=== PATIENT | male | born 1975 | race Caucasian/White ===

== ENCOUNTER 2018-01-23 19:48 | Emergency (ER) | payer OTHER, SELFPAY ==
--- NOTE | 2018-01-23 20:11 | HMH.EDUTC ---
[facility] [place]ression: Influenza B Disposition: Home, Self-Care Condition on Discharge: Good Instructions: DI for Influenza -- Adult Additional Instructions: Rest, fluids, Tylenol/Motrin PRN Referrals: David Acevedo MD [Primary Care Provider] - Time of Disposition: 20:19 Medical Decision Making - Medical Records Medical records reviewed: Yes: I reviewed the patient's medical records. Vital Signs: 01/23/18 20:18 Temperature 97.5 F L Temperature Source Oral Pulse Rate [Left Radial] 95 H Respiratory Rate 20 Blood Pressure [Right Arm] 123/79 Blood Pressure Mean [Right Arm] 93 02 Sat by Pulse Oximetry 98 Oxygen Delivery Method Room Air - Lab Data Lab results reviewed: Yes: I reviewed the patient's lab results. - Ilan Inquiry Pt receiving controlled substance: No [facility] [place] - General Stated complaint: Fever Time Seen by Provider: 01/23/18 20:05 - History of Present Illness Provider Complaint: Cough, congestion, fever X 4 days. - Related Data Allergies Allergy/AdvReac Type Severity Reaction Status Date / Time morphine [MORPHINE] Allergy Mild Unverified 11/19/17 14:25 Penicillins [PENICILLINS] Allergy Mild Unverified 11/19/17 14:25 [facility] History I have reviewed the patient's past medical history: Yes - Social History Alcohol Intake: current ROS Obtained: Yes All systems reviewed & no additional complaints - Constitutional Constitutional: Reports body ache, Reports chills, Reports fever(s) - ENT Ears, Nose, Mouth, and Throat: Reports nasal congestion, Reports sinus pressure - Respiratory Respiratory: Yes cough Physical Exam - General General appearance: alert, in no apparent distress - Head Head exam: atraumatic, normocephalic, normal inspection - Eye Eye exam: Present: normal appearance, PERRL, EOMI - ENT ENT exam: Present: normal exam, normal oropharynx, mucous membranes moist, TM's normal bilaterally, normal external ear exam - Neck Neck exam: Present: normal inspection, full ROM, trachea midline. Absent: meningismus, lymphadenopathy - Chest Chest inspection: Present: normal inspection, symmetric chest wall rise. Absent: tenderness - Respiratory Respiratory exam: Present: normal lung sounds bilaterally. Absent: respiratory distress - Cardiovascular Cardiovascular exam: Present: regular rate, normal rhythm. Absent: JVD - Abdominal Exam Abdominal exam: Present: soft, normal bowel sounds. Absent: distention, tenderness, guarding - Extremities Exam Extremities exam: Present: normal inspection, full ROM, normal capillary refill. Absent: calf tenderness - Back Exam Back exam: Present: normal inspection. Absent: tenderness - Neurological Exam Neurological exam: Present: alert, oriented X3 - Psychiatric Psychiatric exam: Present: normal affect, normal mood - Skin Skin exam: Present: warm, dry, intact, normal color - Lymphatic Lymphatic Findings: no adenopathy
[2018-01-23 20:18] VITALS: BP 123/79; PULSE 95; RESP 20; TEMP 36.4; O2SAT 98; BMI 28.8
--- NOTE | 2018-01-23 20:18 | ED_ITS ---
[facility] [place] Clinical Impression: Influenza B Disposition: Home, Self-Care Condition on Discharge: Good Instructions: DI for Influenza -- Adult Additional Instructions: Rest, fluids, Tylenol/Motrin PRN Referrals: David Acevedo MD [Primary Care Provider] - Time of Disposition: 20:19 Medical Decision Making - Medical Records Medical records reviewed: Yes: I reviewed the patient's medical records. Vital Signs: 01/23/18 20:18 Temperature 97.5 F L Temperature Source Oral Pulse Rate [Left Radial] 95 H Respiratory Rate 20 Blood Pressure [Right Arm] 123/79 Blood Pressure Mean [Right Arm] 93 02 Sat by Pulse Oximetry 98 Oxygen Delivery Method Room Air - Lab Data Lab results reviewed: Yes: I reviewed the patient's lab results. - Ilan Inquiry Pt receiving controlled substance: No [facility] [place] - General Stated complaint: Fever Time Seen by Provider: 01/23/18 20:05 - History of Present Illness Provider Complaint: Cough, congestion, fever X 4 days. - Related Data Allergies Allergy/AdvReac Type Severity Reaction Status Date / Time morphine [MORPHINE] Allergy Mild Unverified 11/19/17 14:25 Penicillins [PENICILLINS] Allergy Mild Unverified 11/19/17 14:25 [facility] History I have reviewed the patient's past medical history: Yes - Social History Alcohol Intake: current ROS Obtained: Yes All systems reviewed & no additional complaints - Constitutional Constitutional: Reports body ache, Reports chills, Reports fever(s) - ENT Ears, Nose, Mouth, and Throat: Reports nasal congestion, Reports sinus pressure - Respiratory Respiratory: Yes cough Physical Exam - General General appearance: alert, in no apparent distress - Head Head exam: atraumatic, normocephalic, normal inspection - Eye Eye exam: Present: normal appearance, PERRL, EOMI - ENT ENT exam: Present: normal exam, normal oropharynx, mucous membranes moist, TM's normal bilaterally, normal external ear exam - Neck Neck exam: Present: normal inspection, full ROM, trachea midline. Absent: meningismus, lymphadenopathy - Chest Chest inspection: Present: normal inspection, symmetric chest wall rise. Absent : tenderness - Respiratory Respiratory exam: Present: normal lung sounds bilaterally. Absent: respiratory distress - Cardiovascular Cardiovascular exam: Present: regular rate, normal rhythm. Absent: JVD - Abdominal Exam Abdominal exam: Present: soft, normal bowel sounds. Absent: distention, tenderness, guarding - Extremities Exam Extremities exam: Present: normal inspection, full ROM, normal capillary refill. Absent: calf tenderness - Back Exam Back exam: Present: normal inspection. Absent: tenderness - Neurological Exam Neurological exam: Present: alert, oriented X3 - Psychiatric Psychiatric exam: Present: normal affect, normal mood - Skin Skin exam: Present: warm, dry, intact, normal color - Lymphatic Lymphatic Findings: no adenopathy
[2018-01-23 20:22] LABS: UTC Influenza A Antigen Negative (Negative); UTC Influenza B Antigen Positive (Negative)
[2018-01-23 20:30] VITALS: BP 120/82; PULSE 96; RESP 20; TEMP 36.4; O2SAT 99
== END 2018-01-23 20:29 | disposition home or self-care (01) ==
PROVIDERS: Emergency Provider Physician Assistant; Family Provider Family Medicine; PCP Family Medicine
DX: J11.1 Influenza due to unidentified influenza virus with other respiratory manifestations (principal); Z88.0 Allergy status to penicillin; Z88.6 Allergy status to analgesic agent
CPT/HCPCS: 87804; 99202

== ENCOUNTER → 2019-03-02 12:54 | Outpatient (CLI) | payer OTHER, SELFPAY ==
--- NOTE | 2019-03-02 12:56 | MR_ITS ---
MR lumbar spine wo con, MR 3-d myelogram/MRCP Ordering Physician: Abel Cannon MD Patient Age: 43 years: Male HISTORY: ITS.REASON: back pain Low back pain with bilateral hip pain. Numbness and tingling bilateral legs to knees symptoms for years but it got worse past 1.5 years. No history of back surgery. TECHNIQUE: Sagittal STIR, T1, T2, axial T1 and T2. On 1.5T Siemens wide bore MRI. 3-D MR myelogram image set obtained & performed on MRI workstation. Additional sagittal thin section T2 weighted dataset obtained from this latter acquisition as well (---76 CPT) COMPARISON :CT chest from 2017 which includes the upper lumbar spine. FINDINGS The lumbar vertebral bodies are intact. No compression fracture or lesion. Slightly modest volume underlying osseous spinal canal. L5/S1.: Mild disc bulge most evident just right of midline. Question tiny early minor disc protrusion here to the right of midline as well on sagittal image 6 which appears to just abut right S1 nerve roots sleeve. Mild facet arthropathy also noted .. L4/5. Mild disc space narrowing with slight diffuse loss of disc hydration. Diffuse disc bulge with additional Mild central disc bulge with just abuts and mildly effaces the the anterior aspect of thecal sac at midline. [id number] facet hypertrophy/arthropathy, along with ligamentum flavum most evident to the left. Overall mild foraminal narrowing L3/4. Disc well hydrated well maintained and intact. Trace facet arthropathy. L2/3, L1/2, T12/L1 disc well hydrated and intact and unremarkable. Conus ends appropriately at L1. Neural foramina patent these levels. 3-D myelogram image set.: Visualized nerve roots sleeve appear fairly symmetrical at all visualized levels. No prominent epidural indentation. Only scant bulge to the right at L5/S1 questionably evident. IMPRESSION: No prominent disc herniation. No significant appearing spinal stenosis. Minimal degenerative disc findings as below: ..L4/5. degenerative disc.. Mild Diffuse disc bulge with additional mild central bulge which mildly Mildly effaces thecal sac at midline. Mild/moderate posterior element hypertrophy also noted L5/S1. Asymmetric disc bulge to the right. With perhaps small subtle disc protrusion right paracentral as well..-These Features slightly abut right S1 nerve root.
--- NOTE | 2019-03-02 12:56 | MR_ITS ---
MR cervical spine wo con Ordering Physician: Abel Cannon MD Patient Age: 43 years: Male HISTORY: ITS.REASON: neck pain Neck pain and bilateral shoulder pain headaches symptoms for years but worse past 1.5 years. 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 On 1.5T Siemens wide bore MRI. 3-D MR myelogram image set obtained & performed on MRI workstation. Additional sagittal thin section T2 weighted dataset obtained from this latter acquisition as well (---76 CPT) COMPARISON :None relevant FINDINGS Nonspecific straightening cervical spine most likely positional. Cervical cranial junction appears satisfactory although modest. The spinal canal measures merely 12.5 mm AP at the level of C1. . I would note Diffuse Modest volume underlying osseous spinal canal as well Cervical cord normal caliber and signal. The cervical vertebral bodies are intact with no compression fracture or lesions. Overall the intervertebral disc well hydrated & well-maintained. C2/3, C3/4, C4/5 C5-C6 disc appear intact. Only some scant central disc prominence of midline at C3/4. C4/5 noted at these levels. C6/7.. Small broad-based leftward disc protrusion-- which does mildly efface the thecal sac to the left of midline but does not impinge upon the cervical cord. This disc protrusion extends 2-2.5 mm posteriorly to slightly indenting the thecal sac to the left.. . also note there is some minimal uncovertebral joint hypertrophy bilaterally at this C6/7 level & along with minimal disc prominence yields mild recess and foraminal encroachment bilaterally, left more so than right. C7/T1 disc intact T1-T2 and T2/T3 disc and foramen unremarkable . Facets appear satisfactory with only question some minor facet hypertrophy at C7/T1 to the right 3-D MR myelogram image set shows a slight diffuse indentation upon the anterior thecal sac at C6/7,, slightly more evident to the left-but there is slightly less filling of the exiting nerve roots sleeves at both levels. On these images I would also note the posterior elements also very slightly indents the posterior aspect of thecal sac at C6/7 level. -----IMPRESSION------- 1.... C6/7. Small broad-based disc protrusion to the left which effaces the thecal sac the left but does not impinge upon cervical cord Also at C6/7 Mild uncovertebral joint hypertrophy bilaterally,, with accompanying mild disc prominence..-Yielding Mild recess & bilateral foraminal encroachment left more so than right.-(. Very Slightly less filling of nerve root sleeves at this C6/7 level noted bilaterally on the 3-D myelogram image set) 2... Other disc levels appear intact & unremarkable 3. ModestUnderlying osseous spinal canal noted
== END ==
LOC: RAD 12:55
PROVIDERS: PCP Emergency Medicine; Visit Provider Emergency Medicine
DX: M54.2 Cervicalgia (principal); M54.9 Dorsalgia, unspecified
CPT/HCPCS: 72141; 72148; 76376

== ENCOUNTER → 2020-10-16 16:54 | Outpatient (CLI) | payer BC, SELFPAY | PROVIDERS: PCP Emergency Medicine; Visit Provider Emergency Medicine | DX: Z03.818 Encounter for observation for suspected exposure to other biological agents ruled out (principal) | CPT/HCPCS: U0003 ==

== ENCOUNTER 2021-07-13 15:00 | Outpatient (RCR) | payer BC, SELFPAY ==
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
--- NOTE | 2021-06-08 15:05 | HMH.RHREAS ---
Rehab Reassessment Rehab OP Re-assessment Start: 06/08/21 14:59 Freq: Status: Active Protocol: Document 06/08/21 14:59 JUDI (Rec: 06/08/21 15:05 JUDI [id number]) Electronically Signed By Taco Baptiste, PT 06/08/21 14:59 Rehab Re-assessment Subjective Subjective Pt reports 5/10 neck and LBP on VAS, and feels 50% better overall, especially related to flexibility Objective Objective Notes AROM: CROM FLX 0-20, EXT 0-25, B SB 0-25, B ROT 40 LUMBAR AROM FLX 0-10, EXT 0-12 , L SB 0-15, R SB 0-20 MMT: B HIP FLX 4/5, B KNEE EXT AND FLX 4+/5, B SH FLX 4/5, B SH ABD 4/5, B BICEP AND TRICEP 4+/5 TTP: L UT 2/4, B LUMBAR PARA MM 3/4, L CERVICAL PARA 2-3/4, B PIRI 2-3/4 Assessment Progress Assessment Slower Than Expected Assessment Notes SLIGHT IMPROVEMENT IN ROM, STRENGTH, AND TTP Patient goals met STG'S 01/10 Goals Not Met STG'S 06/09, LTG'S 09/10 Plan Plan Pt to continue w/skilled P.T. to make further improvements in ROM, strength, and TTP to allow for optimal function Frequency of Therapy 1-2x/wk Duration of therapy 3-4wks Time and Billing Re-Eval Time 15 Re-Eval Billing Units 1 PHYSICIAN CERTIFICATION: I certify the specified therapy services for Kashif Miller are required, authorized, and reviewed every 30 days.
== END 2021-07-13 15:05 | disposition home or self-care (01) ==
LOC: PT 15:00
PROVIDERS: PCP Emergency Medicine; Visit Provider Emergency Medicine
DX: M54.12 Radiculopathy, cervical region (principal); M54.16 Radiculopathy, lumbar region
CPT/HCPCS: 97010; 97012; 97014; 97035; 97110; 97113; 97163; 97164; G0283

== ENCOUNTER 2021-11-08 14:00 | Outpatient (RCR) | payer BC, SELFPAY ==
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
--- NOTE | 2021-10-11 14:13 | HMH.RHREAS ---
Rehab Reassessment Rehab OP Re-assessment Start: 10/11/21 14:00 Freq: Status: Active Protocol: Document 10/11/21 14:01 THOMPSON (Rec: 10/11/21 14:13 THOMPSON [id number]) Electronically Signed By Jim Mullins, PT 10/11/21 14:01 Rehab Re-assessment Subjective Subjective Patient reports 30% improvement since start of care. Objective Objective Notes LS AROM: 10 deg in all planes CS AROM: 10 deg in all planes MMT BUE/BLE: 4+/5 grossly Pain: 6/10 today; 8/10 at worst; 5/10 at best Neuro: patient continues to experience intermittent NT to BUE/BLE, though dec freq/ intensity from start of care. Assessment Progress Assessment Progressing as Expected Assessment Notes Patient is responding well to aquatic physical therapy treatments. He has completed 5 treatment sessions to date. Patient continues to have BUE /BLE radicular symptoms, though improvements noted with intensity and frequecy of symptoms. Patient continues to have functional limitations with all standing/walking/ bending/lifting activities. Supsect non-compliance with HEP. Suspect malingering. Patient goals met None Goals Not Met All Revised Goals NA Plan Plan Continue with current POC. Frequency of Therapy 2x/week Duration of therapy 4 week Time and Billing Re-Eval Time 15 Re-Eval Billing Units 1 PHYSICIAN CERTIFICATION: I certify the specified therapy services for Kashif Miller are required, authorized, and reviewed every 30 days.
== END 2021-11-08 14:05 | disposition home or self-care (01) ==
LOC: PT 14:00
PROVIDERS: PCP Emergency Medicine; Visit Provider Emergency Medicine
DX: M54.12 Radiculopathy, cervical region (principal); M54.16 Radiculopathy, lumbar region
CPT/HCPCS: 97113; 97163; 97164

== ENCOUNTER 2022-11-14 14:00 | Outpatient (RCR) | payer BC, SELFPAY ==
--- NOTE | 2022-10-11 13:40 | HMH.PTOPEV ---
PT Outpatient Evaluation Rehab PT Outpatient Evaluation Start: 10/11/22 13:27 Freq: Status: Active Protocol: Document 10/11/22 13:27 JUDI (Rec: 10/11/22 13:40 JUDI [id number]) E-signed By Taco Baptiste, PT Outpatient Therapy Subjective History Subjective History Pt reports h/o chronic LBP d/t severe related injury, reports exacerbation on 08/09/22. Pt reports bending/ lifting motion caused 'huge pop with severe pain, and I've been suffering with leg pain, weakness, and back pain since .' Pt reports left > right sided LBP as well as LE s/s. Pt reports previous imaging studies of lumbar spine have revealed DDD, DJD, 'disc buldges at two levels'. Chief Complaint Pain,Stiff,Gives out/Unstable, Paresthesia,Weakness Symptom Type Ache,Throb,Dull,Stabbing Symptoms Relieved By Rest/Positioning,OTC Meds, Prescription Meds Symptoms Aggravated By Standing,Bending/Stooping, Physical Activity,Twisting, Walking,Lifting Prior Functional Limitations Lifting,Housework,Standing, Recreation Activity,Bending/ Stooping Current Functional Limitations Lifting,Housework,Standing, Walking,Bending/Stooping Symptom Description Constant but Variable Level of pain today (0-10) 4 Pain scale - at its best (0-10) 4 Pain scale - at its worst (0-10) 10 Lumbopelvic Eval Posture Thoracic Spine Posture Standing Position Flattened Lumbar Spine Posture Standing Position Flattened Assistive device Assistive Devices None / NA Gait Observation General Gait Pattern Observation Antalgic Gait Palapation tenderness bilateral lumbar spinal tenderness Yes: 3/4 paraspinal tenderness Yes: 3/4 Lumbar/Sacral Palpation Findings Tenderness,Muscle Guarding Lumbar/Sacral Palpation Overall Comment 3/4 Accessory Movement L-spine Vertebrae Accessory Movements [employer] [place] that Elicit Symptoms L2 bilateral L3 bilateral L4 bilateral L5 bilateral Range of Motion Lumbar Spine Active Flexion Range of 0-10 Motion (degrees) Lumbar Spine Active Extension Range of 0-5 Motion (degrees) Left Lumba
== END 2022-11-14 14:05 | disposition home or self-care (01) ==
LOC: PT 14:00
PROVIDERS: PCP Emergency Medicine; Visit Provider Emergency Medicine
DX: M54.16 Radiculopathy, lumbar region (principal)
CPT/HCPCS: 97113; 97163

== ENCOUNTER 2023-02-14 11:00 | Outpatient (RCR) | payer BC, SELFPAY ==
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
--- NOTE | 2022-12-19 15:08 | HMH.RHREAS ---
Rehab Reassessment Rehab OP Re-assessment Start: 12/19/22 14:58 Freq: Status: Active Protocol: Document 12/19/22 14:58 JUDI (Rec: 12/19/22 15:08 [id number]) E-signed By Taco Baptiste, PT Rehab Re-assessment Subjective Subjective Pt reports improved neck pain since I eval @ 4/10 on VAS over the last couple days, as well as feeling 60% better overall. Objective Objective Notes CROM: FLX 0-30, EXT 0-35, B SB 0-25, B ROT 0-40 MMT: BI. DELTOID MM 4/5, ELBOW AND WRIST MM WFL TTP: LEFT UT MM 2-3/4, RIGHT UT 2/4, MINERVA. SCALENE 1-2/4 Assessment Progress Assessment Progressing as Expected Assessment Notes IMPROVED CROM, STRENGTH, AND SLIGHT IMPROVEMENTS IN TTP Patient goals met STG'S 05/11 LTG'S 12/11 Goals Not Met STG'S 03/11, LTG'S 08/11 Plan Plan Pt to continue w/skilled P.T. to make further improvements in CROM, strength, and TTP to allow for optimal function Frequency of Therapy 1-2x/wk Duration of therapy 3-4wks Time and Billing Re-Eval Time 12 Re-Eval Billing Units 1 PHYSICIAN CERTIFICATION: I certify the specified therapy services for Kashif Miller are required, authorized, and reviewed every 30 days.
--- NOTE | 2023-01-16 16:24 | HMH.RHREAS ---
Rehab Reassessment Rehab OP Re-assessment Start: 12/19/22 14:58 Freq: Status: Active Protocol: Document 01/16/23 14:27 JUDI (Rec: 01/16/23 16:24 JUDI [id number]) E-signed By Taco Baptiste, PT Rehab Re-assessment Subjective Subjective Pt reports 3-4/10 neck pain on VAS this pm, and feels 70-75% better overall functionally since I eval Objective Objective Notes CROM: FLX 0-30, EXT 0-45, B SB 0-40, B ROT 0-55 MMT: RIGHT DELTOID MM 4-4+/5, LEFT DELTOID MM 4+/5 ELBOW AND WRIST MM WFL TTP: LEFT UT MM 1-2/4, RIGHT UT 2-3/4, MINERVA. SCALENE 1-2 Assessment Progress Assessment Progressing as Expected Assessment Notes IMPROVED CROM, STRENGTH, AND TTP Patient goals met STG'S 07/11 LTG'S 02/08 Goals Not Met STG'S 01/11, LTG'S 06/10 Plan Plan Pt to continue w/skilled P.T. to make further improvements in CROM, strength, and TTP to allow for optimal function Frequency of Therapy 1-2X/WK Duration of therapy 3-4WKS Time and Billing Re-Eval Time 12 Re-Eval Billing Units 1 PHYSICIAN CERTIFICATION: I certify the specified therapy services for Kashif Miller are required, authorized, and reviewed every 30 days.
== END 2023-02-14 11:05 | disposition home or self-care (01) ==
LOC: PT 11:00
PROVIDERS: PCP Emergency Medicine; Visit Provider Emergency Medicine
DX: M54.2 Cervicalgia (principal); M99.81 Other biomechanical lesions of cervical region
CPT/HCPCS: 97010; 97014; 97035; 97110; 97140; 97163; 97164; G0283

== ENCOUNTER 2023-11-19 12:27 | Emergency (ER) | payer BC, SELFPAY ==
[2023-11-19 13:10] VITALS: BP 148/89; PULSE 90; RESP 18; TEMP 37.2; O2SAT 96; BMI 31.4
--- NOTE | 2023-11-19 13:21 | EXP.UTC ---
Discharge Plan Disposition Patient Disposition: Home, Self-Care Condition: Good Prescriptions Prescriptions: New azithromycin [Zithromax Z-Deni] 250 mg tablet See Rx Instructions .ROUTE .COMPLEX 5 Days Qty: 6 0RF Rx Instructions: For 250 mg dose pack: take 500 mg today (day 1), then 250 mg for 4 days (days 2-5) benzonatate 100 mg capsule 100 mg PO TID PRN (Reason: cough) Qty: 30 0RF No Action meloxicam 7.5 mg tablet 7.5 mg PO DAILY lorazepam 0.5 mg tablet 0.5 mg PO NEEDED PRN (Reason: Anxiety) Referrals Follow up/Referrals: Letty Leal APRN [Primary Care Provider] - See instructions Activity Restrictions/Add. Instructions Additional Instructions/Restrictions: *Monitor Temp, Over the counter Motrin or Tylenol as directed/as needed Tylenol every 4 hours and Motrin every 6 hours (as long as your family doctor has told you that you can take it) for fever or pain. and straight to ER if unable to lower temp less than 101.0 after medication given *Warm salt water gargles may help to soothe the throat *Throat Lozenges? *Warm fluids like tea with honey may help to soothe the throat? *Sleep elevated *Humidifier/Vaporizer Follow up IMMEDIATELY for new or worsening symptoms or no Noticeable improvement over the next 48-72 hours. 911 for difficulty breathing or swallowing Instructions Patient Instructions: DI for Sinusitis, Sinusitis Discharge ED Provider: Denia Gill [facility] General Stated complaint: congestion cough Time Seen by Provider: 11/19/23 13:21 History of Present Illness Provider Complaint: Patient states that he has been having sinus pain and pressure, drainage in the back of his throat, cough and feels like it is trying to move into his chest States that he has been like that for about a week but got worse in the last couple of days so today he came in wanting to get it checked Related Data Home Medications Medication Instructions Recorded Confirmed meloxicam 7.5 mg tablet 7.5 mg PO DAILY 10/01/22 11/19/23 lorazepam 0.5 mg tablet 0.5 mg PO NEEDED PRN Anxiety 11/19/23 11/19/23 Previous Rx's Medication Instructions Recorded azithromycin 250 mg tablet See Rx Instructions PO .COMPLEX 5 11/19/23 (Zithromax Z-Deni) days #6 tabs benzonatate 100 mg capsule 100 mg PO TID PRN cough #30 caps 11/19/23 Allergies Allergy/AdvReac Type Severity Reaction Status Date / Time morphine [MORPHINE] Allergy Mild Verified 11/19/23 13:31 Penicillins [PENICILLINS] Allergy Mild Verified 11/19/23 13:31 prednisone AdvReac Intermediate Anxiety Verified 11/19/23 13:31 [facility] Disclaimer: The information contained in this section may have been updated after the patient was seen, as this information can be updated by other users. Social History Smoking Status: Current every day smoker tobacco type: cigarettes alcohol intake: never substance use type: denies use current occupational status: employed Travel in the last 8 weeks: None ROS Obtained: Yes All systems reviewed & no additional complaints except as documented and Yes Systems reviewed as appropriate & no additional complaints except as documented Constitutional Constitutional: Reports system reviewed and no additional complaints, except as documented and Reports as per HPI ENT Ears, Nose, Mouth, and Throat: Reports system reviewed and no additional complaints, except as documented, Reports as per HPI, Reports sinus pain and Reports sinus pressure Cardiovascular Cardiovascular: Reports system reviewed and no additional complaints, except as documented and Reports as per HPI Respiratory Respiratory: Reports system reviewed and no additional complaints, except as documented, Reports as per HPI and Reports cough Gastrointestinal Gastrointestingal: Reports system reviewed and no additional complaints, except as documented and
[2023-11-19 13:40] LABS: UTC Influenza A Antigen Negative (Negative); UTC Influenza B Antigen Negative (Negative)
[2023-11-19 13:55] VITALS: BP 148/89; PULSE 90; RESP 18; TEMP 37.2; O2SAT 96
== END 2023-11-19 13:59 | disposition home or self-care (01) ==
PROVIDERS: Emergency Provider Nurse Practitioner; PCP Nurse Practitioner
DX: J01.90 Acute sinusitis, unspecified (principal); R05.9 Cough, unspecified; R09.81 Nasal congestion; R09.82 Postnasal drip
CPT/HCPCS: 87804; 99204; 99212; G0463

== ENCOUNTER 2025-02-01 10:43 | Emergency (ER) | payer OTHER, SELFPAY ==
[2025-02-01 10:45] VITALS: BP 176/87; PULSE 87; RESP 20; TEMP 36.6; O2SAT 97; BMI 30.7
[2025-02-01 12:30] VITALS: BP 121/87; PULSE 75; O2SAT 97
[2025-02-01 13:00] VITALS: BP 121/75; PULSE 73; O2SAT 94
--- NOTE | 2025-02-01 13:09 | ED_ITS ---
<Statement entered by Raquel Aquino MD - 02/04/25 15:21> I was consulted by the ANN MARIE, and we discussed the complexity of the problems being addressed. I approved the treatment and management plan for this patient's care in the emergency department, thus performing a substantive portion of the medical decision making. Raquel Aquino MD, ALDA, FACEP Discharge Plan Disposition Patient Disposition: Home, Self-Care Condition: Good Prescriptions Prescriptions: No Action meloxicam 7.5 mg tablet 7.5 mg PO DAILY lorazepam 0.5 mg tablet 0.5 mg PO NEEDED PRN (Reason: Anxiety) azithromycin [Zithromax Z-Deni] 250 mg tablet See Rx Instructions .ROUTE .COMPLEX 5 Days Qty: 6 0RF Rx Instructions: For 250 mg dose pack: take 500 mg today (day 1), then 250 mg for 4 days (days 2-5) benzonatate 100 mg capsule 100 mg PO TID PRN (Reason: cough) Qty: 30 0RF Referrals Follow up/Referrals: Mary Leal APRN [Primary Care Provider] - See instructions Activity Restrictions/Add. Instructions Additional Instructions/Restrictions: As we discussed[facility] have continued new or worsening signs or symptoms or return to the ER as needed. Please take no more than 3 g of Tylenol at 1000 mg a dose every 8 hours as needed. I recommend ice and heat to help. Clinical Impressions Clinical Impression: Acute lumbar back pain Instructions Patient Instructions: DI for Low Back Pain Print Language Print Language: Beninese Discharge ED Provider: Raquel Aquino General Adult HPI General Chief complaint: Back Pain/Injury Stated complaint: pain lower right back abt a week Time Seen by Provider: 02/01/25 13:00 Mode of Arrival: Ambulatory Source of Information: Patient Description of Symptoms (Recalled from ER Triage Doc. by RN): got choked last week, something knotted up in right lower back during choking episode, has used tylenol and topical icy hot, can still tell when he needs to use bathroom, makes walking hard History of Present Illness HPI narrative: Patient presents for right low back pain. Patient states he was sitting in a chair watching TV last Saturday and got choked drinking water. He had a severe coughing fit and during that had sharp pain in his right low back. It has been persistent since then especially with coughing or moving with rotation. He states he was sitting at a table and had a a cough this morning and the pain was intense so he came to the ER for evaluation. Patient not shortness of breath fever chills hemoptysis hematochezia melena nausea vomiting diarrhea. Related Data Home Medications ?Medication ?Instructions ?Recorded ?Confirmed meloxicam 7.5 mg tablet 7.5 mg PO DAILY 10/01/22 11/19/23 lorazepam 0.5 mg tablet 0.5 mg PO NEEDED PRN Anxiety 11/19/23 11/19/23 Previous Rx's ?Medication ?Instructions ?Recorded azithromycin 250 mg tablet See Rx Instructions PO .COMPLEX 5 11/19/23 (Zithromax Z-Deni) days #6 tabs benzonatate 100 mg capsule 100 mg PO TID PRN cough #30 caps 11/19/23 Allergies Allergy/AdvReac Type Severity Reaction Status Date / Time morphine (MORPHINE) Allergy Mild Verified 11/19/23 13:31 Penicillins (PENICILLINS) Allergy Mild Verified 11/19/23 13:31 prednisone AdvReac Intermediate Anxiety Verified 11/19/23 13:31 [facility] Disclaimer: The information contained in this section may have been updated after the patient was seen, as this information can be updated by other users. Social History Smoking Status: Unknown if ever smoked alcohol intake: never substance use type: denies use current occupational status: employed Travel in the last 8 weeks: None Have you lived/traveled outside US in past 30 days?: No Contact w/someone who lives/traveled outside US past 30 days?: No Exposure to someone with infectious disease in past 14 days?: No Do you have a fever (greater than 100.4 F or 38 C)?: No Have you tested positive for COVID-19: No Exposed to someone with COVID-19 in past 14 days?: No Do you have a sore throat?: No Do you have a cough?: No Do you have any weakness?: No Do you have any diarrhea?: No Are you experiencing any unusual bleeding?: No Do you have any muscle aches/pain?: Yes Do you have any abdominal pain?: No Are you experiencing loss of taste or smell?: No Other Medical History Have you received the Pneumonia Vaccine: No ROS Obtained: Yes Systems reviewed as appropriate & no additional complaints except as documented Physical Exam General General appearance: alert and in no apparent distress Respiratory Respiratory exam: Present normal lung sounds bilaterally Cardiovascular Cardiovascular exam: Present regular rate Neurological Exam Neurological exam: Present alert and oriented X3 Medical Decision Making Medical Records Screening: Per USPSTF and CDC recommendations, given the prevalence of disease in our region, it is our hospital?s policy to screen for HIV and viral Hepatitis for all patients aged 18 and over and those with ongoing risk factors. Ilan Inquiry Pt receiving controlled substance: No Vital Signs: 02/01/25 10:45 02/01/25 12:30 02/01/25 13:00 Temperature 97.8 F Temperature Source Oral Pulse Rate 75 73 Pulse Rate [Left Radial] 87 Respiratory Rate 20 Blood Pressure 121/87 121/75 Blood Pressure [Right Arm] 176/87 H Blood Pressure Mean 98 94 Blood Pressure Mean [Right Arm] 116 Blood Pressure Source Blood Pressure Position 02 Sat by Pulse Oximetry 97 97 94 L Oxygen Delivery Method Room Air 02/01/25 13:30 02/01/25 14:57 Temperature 97.8 F Temperature Source Oral Pulse Rate 88 88 Pulse Rate [Left Radial] Respiratory Rate 18 Blood Pressure 120/82 120/82 Blood Pressure [Right Arm] Blood Pressure Mean 91 Blood Pressure Mean [Right Arm] Blood Pressure Source Automatic Cuff Blood Pressure Position Sitting 02 Sat by Pulse Oximetry 92 L Oxygen Delivery Method Room Air Orders (Tests/Meds): ED MEDICATIONS Discontinued Medications Generic Name Dose Route Start Last Admin Trade Name Freq PRN Reason Stop Dose Admin Lidocaine 1 each 02/01/25 13:16 02/01/25 13:26 Lidocaine 5% Transdermal Patch TP 02/01/25 13:17 1 each ONCE ONE Administration ORDERS Category Date Time Status CT abdomen wo con Stat Cat Scan 02/01/25 13:[address] chest wo con Stat Cat Scan 02/01/25 13:16 Completed Medical Decision Narrative: In summary patient is a 49-year-old male who presents to the emergency department for evaluation of atraumatic right low back pain. Patient is hemodynamically stable upon arrival, afebrile. Physical exam is remarkable for tenderness to palpation in the right posterior rib cage/lateral lumbar area without any palpable bony deformity ecchymosis or swelling contusions abrasions. Patient is neurovascularly intact distally has good breath sounds no midline spine tenderness.. Differential diagnosis includes muscle strain versus rib fracture etc. Initial workup will be conducted with CT Noncon of the chest. Initial interventions include Lidoderm patch as patient does not want any sedating medications such as a muscle relaxer. Initial workup reviewed by me and my informal interpretation of his CT scan of the chest and abdomen does not show any acute bony injury or abnormality prior to radiology read.. Upon repeat evaluation patient reports that he is no significant change with the Lidoderm patch. Given this I had a shared decision-making discussion with the patient regarding his ANGELES findings and management. Patient is comfortable going home with [facility] if he has continued symptoms. Thus patient is appropriate for discharge with close [facility] with the [facility] and return to the ER for any new or worsening signs or symptoms as needed. Critical Care Critical Care Time Critical Care Time: No
--- NOTE | 2025-02-01 13:16 | CT_ITS ---
FINAL REPORT TECHNIQUE: Axial imaging of the chest was obtained without contrast. Reformatted images were also obtained and reviewed.This study was performed with techniques to keep radiation doses as low as reasonably achievable, (ALARA). Individualized dose reduction technique using automated exposure control or adjustment of mA and/or kV according to the patient's size were employed. CLINICAL HISTORY: Pain after coughing right low back FINDINGS: There is no axillary adenopathy. There is no hilar or mediastinal mass or adenopathy. Heart size is normal. There is no pericardial or pleural effusion. Limited images of the upper abdomen are unremarkable. There is left lower lobe scarring or atelectasis. Minimal scarring is seen in the posterior right lower lobe. There is no consolidation or mass. IMPRESSION: Chronic scarring in the left lung without evidence of acute process. Reviewed, Interpreted and Dictated by Luba Pool MD Transcribed by Edna Cardozo Authenticated and [facility]
[2025-02-01] MEDS: LIDOCAINE 5% TRANSDERMAL PATCH 1 EACH TP (13:26)
--- NOTE | 2025-02-01 13:27 | PC.NURSE ---
PT MEDICATED PER EMAR, UPDATED ON POC. NO NEEDS AT THIS TIME. CALL LIGHT WITHIN REACH
[2025-02-01 13:30] VITALS: BP 120/82; PULSE 88; O2SAT 92
--- NOTE | 2025-02-01 13:44 | PC.NURSE ---
pt transported to ct scan via grading supervisor and wheelchair
--- NOTE | 2025-02-01 13:44 | PC.NURSE ---
PT TO CT
--- NOTE | 2025-02-01 13:46 | CT_ITS ---
FINAL REPORT TECHNIQUE: Axial CT images were performed from the lung bases through the iliac crests. Coronal and sagittal reformats were submitted.This study was performed with techniques to keep radiation doses as low as reasonably achievable (ALARA). Individualized dose reduction techniques using automated exposure control or adjustment of mA and/or kV according to the patient''''s size were employed. CLINICAL HISTORY: Atraumatic right lumbar rib pain FINDINGS: Exam is limited without the benefit of IV contrast. ABDOMEN: The liver parenchyma is homogeneous. The pancreas and adrenals are unremarkable. Patient is status post prior splenectomy and cholecystectomy. There is no evidence of nephrolithiasis or hydronephrosis. There is no mass or adenopathy. There is no evidence of bowel obstruction. No lower rib fracture is identified. IMPRESSION: No acute process. Reviewed, Interpreted and Dictated by Luba Polo MD Transcribed by Edna Cardozo Authenticated and . [facility]
[2025-02-01 14:57] VITALS: BP 120/82; PULSE 88; RESP 18; TEMP 36.6; O2SAT 92
== END 2025-02-01 14:58 | disposition home or self-care (01) ==
PROVIDERS: Emergency Provider Student in an Organized Health Care Education/Training Program; PCP Nurse Practitioner
DX: M54.50 Low back pain, unspecified (principal)
CPT/HCPCS: 71250; 74150; 99284

== ENCOUNTER 2025-10-12 17:03 | Emergency (ER) | payer OTHER, SELFPAY ==
[2025-10-12 17:07] VITALS: BP 160/86; PULSE 82; RESP 20; TEMP 37.1; O2SAT 96; BMI 30.7
[2025-10-12 17:30] VITALS: BP 116/85; PULSE 78; O2SAT 96
--- NOTE | 2025-10-12 17:37 | ED_ITS ---
Discharge Plan Disposition Patient Disposition: Home, Self-Care Prescriptions Prescriptions: No Action meloxicam 7.5 mg tablet 7.5 mg PO DAILY lorazepam 0.5 mg tablet 0.5 mg PO NEEDED PRN (Reason: Anxiety) azithromycin [Zithromax Z-Deni] 250 mg tablet See Rx Instructions .ROUTE .COMPLEX 5 Days Qty: 6 0RF Rx Instructions: For 250 mg dose pack: take 500 mg today (day 1), then 250 mg for 4 days (days 2-5) benzonatate 100 mg capsule 100 mg PO TID PRN (Reason: cough) Qty: 30 0RF Referrals Follow up/Referrals: Mary Leal APRN [Primary Care Provider, Medical] - See instructions Activity Restrictions/Add. Instructions Additional Instructions/Restrictions: Your exam is consistent with what is called a subconjunctival hemorrhage. This is likely from a small capillary that burst on the surface of the eye. This should resolve over time without treatment. If you develop any new or worsening symptoms, such as blurry vision, double vision, loss of vision, worsening pain within or behind the eye, fever, or if you become concerned for your health for any reason, return to the emergency department for evaluation. Clinical Impressions Clinical Impression: Subconjunctival hemorrhage Print Language Print Language: Samoan Discharge ED Provider: Michel Narvaez General Adult HPI <Michel Narvaez MD - Last Filed: 10/12/25 17:48> General Chief complaint: Eye Problems Stated complaint: right eye pain and headache Time Seen by Provider: 10/12/25 17:19 History of Present Illness HPI narrative: Kashif Miller is a 50-year-old male with a past medical history of cervical radicular pain, anxiety, PTSD who presents to the emergency department for complaints of redness in his right eye. Patient states that prior to arrival, he was sitting in his truck and noticed his eye appeared red. He denies any trauma to the eye. He denies any pain within the eye itself. He does report a history of chronic headaches that he follows a neurologist for does have a mild right-sided headache. He denies any double vision, blurry vision, vision loss. He does not have pain with movements of the eye. Related Data Home Medications ?Medication ?Instructions ?Recorded ?Confirmed meloxicam 7.5 mg tablet 7.5 mg PO DAILY 10/01/22 lorazepam 0.5 mg tablet 0.5 mg PO NEEDED PRN Anxi ety 11/19/23 11/19/23 Previous Rx's ?Medication ?Instructions ?Recorded azithromycin 250 mg tablet See Rx Instructions PO .COM PLEX 5 11/19/23 (Zithromax Z-Deni) days #6 tabs benzonatate 100 mg capsule 100 mg PO TID PRN cough #30 caps 11/19/23 Allergies Allergy/AdvReac Type Severity Reaction Status Date / Time morphine (MORPHINE) Allergy Mild Verified 11/19/23 13:31 Penicillins (PENICILLINS) Allergy Mild Verified 11/19/23 13:31 prednisone AdvReac Intermediate Anxiety Verified 11/19/23 13:31 <Mary Leal (ED), DELIVERY TECH - Last Filed: > General Mode of Arrival: Ambulatory Source of Information: Patient and Spouse Description of Symptoms (Recalled from ER Triage Doc. by RN): patient presents to the ED for right eye redness/bloodiness. patient denies any current pain but states that he does get pain when he moves his eye a certain way and it is sharp when it does. [facility] <Michel Narvaez MD - Last Filed: 10/12/25 17:48> [facility] Social History Smoking Status: Current every day smoker tobacco type: cigarettes alcohol intake: never substance use type: denies use current occupational status: employed Travel in the last 8 weeks?: None <Mary Leal (ED), DELIVERY TECH - Last Filed: > [facility] Disclaimer: The information contained in this section may have been updated after the patient was seen, as this information can be updated by other users. Other Medical History Have you received the Pneumonia Vaccine: No <Michel Narvaez MD - Last Filed: 10/12/25 17:48> ROS Obtained: Yes Systems reviewed as appropriate & no additional complaints except as documented Physical Exam <Michel Narvaez MD - Last Filed: 10/12/25 17:48> General General appearance: alert and in no apparent distress Head Head exam: atraumatic Eye Eye exam: Present normal appearance, PERRL, EOMI and other Expanded Eye Exam Comment: Subconjunctival hemorrhage along the medial aspect of the eye, does not involve the iris. No hyphema. Pupils equal round reactive to light. Extraocular movements intact. No proptosis or exophthalmos. No periorbital erythema. Visual dumont intact in all dumont. Corneal abrasions or ulcerations on fluorescein staining. Intraocular pressures normal at 15 on the right ENT ENT exam: Present normal external ear exam Neck Neck exam: Present full ROM Chest Chest inspection: Present symmetric chest wall rise Respiratory Respiratory exam: Present normal lung sounds bilaterally; Absent respiratory distress Cardiovascular Cardiovascular exam: Present regular rate and normal rhythm Abdominal Exam Abdominal exam: Present soft; Absent tenderness or guarding exam: Present deferred Extremities Exam Extremities exam: Present normal inspection Back Exam Back exam: Present normal inspection Neurological Exam Neurological exam: Present alert and oriented X3 Psychiatric Psychiatric exam: Present normal affect Skin Skin exam: Present warm and dry Medical Decision Making <Michel Narvaez MD - Last Filed: 10/12/25 17:48> Ilan Inquiry Pt receiving controlled substance: No Vital Signs: 10/12/25 17:07 10/12/25 17:30 Temperature 98.7 F Temperature Source Oral Pulse Rate 78 Pulse Rate [Right Radial] 82 Respiratory Rate 20 Blood Pressure 116/85 Blood Pressure [Right Arm] 160/86 H Blood Pressure Mean 98 Blood Pressure Mean [Right Arm] 110 Blood Pressure Source [Right Arm] Automatic Cuff Blood Pressure Position [Right Arm] Sitting 02 Sat by Pulse Oximetry 96 96 Oxygen Delivery Method Room Air Orders (Tests/Meds): ED MEDICATIONS Discontinued Medications Generic Name Dose Route Start Last Admin Trade Name Normanq PRN Reason Stop Dose Admin Fluorescein Sodium 1 mg 10/12/25 17:25 Fluorescein Sodium 1mg Strip OP 10/12/25 17:26 ONCE ONE Tetracaine HCl 0 ml 10/12/25 17:25 Tetracaine 0.5% Opth Yuliana 15ml OP 10/12/25 17:26 ONCE ONE Medical Decision Narrative: Kashif Miller is a 50-year-old male with a past medical history of cervical radicular pain, anxiety, PTSD who presents to the emergency department for complaints of redness in his right eye. Patient states that prior to arrival, he was sitting in his truck and noticed his eye appeared red. He denies any trauma to the eye. He denies any pain within the eye itself. He does report a history of chronic headaches that he follows a neurologist for does have a mild right-sided headache. He denies any double vision, blurry vision, vision loss. He does not have pain with movements of the eye. On arrival, patient is hemodynamically stable, normotensive, heart rate within normal limits, breathing roughly on room air with oxygen saturation 96% SpO2. Physical exam, stated above, revealed overall well-appearing male in no distress. Pupils equal round reactive to light. Extraocular movements intact without pain. No proptosis or exophthalmos. Patient does have injected conjunctive up along the medial aspect of the right eye but this does not involve the iris. No periorbital erythema or swelling. Fluorescein staining after tetracaine drops was performed and showed no evidence of corneal ulcerations or abrasions or other defects. Intraocular pressure on the right was normal at 15. Visual dumont are intact. Patient does not have any subjective vision changes. I have very low concern for preseptal or orbital cellulitis. Patient's physical exam is most consistent with a subconjunctival hemorrhage. Given his vision is not affected, intraocular pressures are normal, and there is no evidence of hyphema, I feel that no additional workup is indicated at this time. I did discuss with patient that this should resolve over time but if he has any worsening symptoms, such as changes in his vision, protrusion of the eye, pain within the eye or behind the eye, fever, to return to the emergency department for evaluation. All questions were answered. He demonstrated understanding and was in agreement this plan. He was then discharged from the emergency department in stable condition. <Mary Leal (ED), DELIVERY TECH - Last Filed: > Medical Records Screening: Per USPSTF and CDC recommendations, given the prevalence of disease in our region, it is our hospital?s policy to screen for HIV and viral Hepatitis for all patients aged 18 and over and those with ongoing risk factors. Vital Signs: 10/12/25 17:07 10/12/25 17:30 Temperature 98.7 F Temperature Source Oral Pulse Rate 78 Pulse Rate [Right Radial] 82 Respiratory Rate 20 Blood Pressure 116/85 Blood Pressure [Right Arm] 160/86 H Blood Pressure Mean 98 Blood Pressure Mean [Right Arm] 110 Blood Pressure Source [Right Arm] Automatic Cuff Blood Pressure Position [Right Arm] Sitting 02 Sat by Pulse Oximetry 96 96 Oxygen Delivery Method Room Air Orders (Tests/Meds): ED MEDICATIONS Discontinued Medications Generic Name Dose Route Start Last Admin Trade Name Freq PRN Reason Stop Dose Admin Fluorescein Sodium 1 mg 10/12/25 17:25 Fluorescein Sodium 1mg Strip OP 10/12/25 17:26 ONCE ONE Tetracaine HCl 0 ml 10/12/25 17:25 Tetracaine 0.5% Opth Yuliana 15ml OP 10/12/25 17:26 ONCE ONE Critical Care <Michel Navraez MD - Last Filed: 10/12/25 17:48> Critical Care Time Critical Care Time: No
[2025-10-12] MEDS: TETRACAINE 0.5% OPTH SOL 15ML OP (17:43)
[2025-10-12] MEDS: FLUORESCEIN SODIUM 1MG STRIP 1 MG OP (17:44)
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
[2025-10-12 17:57] VITALS: BP 116/85; PULSE 70; RESP 16; TEMP 37.1; O2SAT 99
== END 2025-10-12 18:02 | disposition home or self-care (01) ==
LOC: ER 17:46
PROVIDERS: Emergency Provider Student in an Organized Health Care Education/Training Program; PCP Nurse Practitioner
DX: H11.30 Conjunctival hemorrhage, unspecified eye (principal)
CPT/HCPCS: 99283